=== PATIENT | female | born 1990 | race Caucasian/White ===

== ENCOUNTER 2024-04-08 20:42 | Emergency (ER) | payer SELFPAY ==
[~2024-04-08] VITALS: Ht 160 cm; Wt 53.0 kg
[2024-04-08 20:54] VITALS: BP 135/67; RESP 20; TEMP 36.9; O2SAT 99
[2024-04-08 20:55] VITALS: PULSE 120; O2SAT 97
[2024-04-08] MEDS ORDERED: TAM75 MT (21:18)
[2024-04-08] MEDS ORDERED: P50 MT (21:18)
[2024-04-08] MEDS ORDERED: FAMO-135 MT (21:18)
== END 2024-04-08 22:44 | disposition home or self-care (01) ==
LOC: ER 20:42
DX: R21 Rash and other nonspecific skin eruption (principal); Z88.6 Allergy status to analgesic agent
CPT/HCPCS: 93005; 99283